=== PATIENT | male | born 1940 ===

== ENCOUNTER 2016-11-16 08:15 | Day surgery (SDC) | payer BC ==
[2016-11-14 17:28] LABS: HEMATOCRIT 39.4 % (40.0-51.0); HEMOGLOBIN 13.9 g/dL (13.6-17.8)
[2016-11-14 18:40] LABS: BUN (BLOOD UREA NITROGEN) 17 MG/DL (6-23); CALCIUM, SERUM 9.3 MG/DL (8.5-10.4); CHLORIDE, SERUM 103 MMOL/L (96-112); CO2 (CARBON DIOXIDE) 31 MMOL/L (24-34); CREATININE 1.09 MG/DL (0.70-1.30); GFR AFRICAN AMERICAN 77 ML/MIN (>=60); GFR NON AFRICAN AMERICAN 67 ML/MIN (>=60); GLUCOSE, SERUM 116 MG/DL (60-99); POTASSIUM, SERUM 3.9 MMOL/L (3.5-5.3); SODIUM, SERUM 141 MMOL/L (135-148)
--- NOTE | ~2016-11-16 | OP ---
Record Of Operation [facility] [address] [place]. 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 PROCEDURE: A wide local excision of a squamous cell carcinoma of the right ear with advancement flap closure. ANESTHESIA: MAC using 1% lidocaine with 1:100,000 epinephrine for local anesthesia. ESTIMATED BLOOD LOSS: 2 mL. INTRAOPERATIVE FLUIDS: 550 mL crystalloid. INTRAOPERATIVE FINDINGS: Slightly raised area on the posterior aspect of the right ear above the level of the earlobe with a centrally located stitch from the patient's previous biopsy. A 3 mm margin was diagrammed around the slightly raised tissue with a resultant excision of a lesion approximately 15 mm in diameter. This was closed with an advancement flap from the adjacent tissue on the posterior aspect of the right ear. OPERATIVE PROCEDURE: The patient was identified in the holding and transported to the operating room. In the operating room, the patient was placed on the operating room table in the supine position. Following administration of IV sedation with propofol, a proposed incision was diagrammed around the lesion in the aforementioned fashion. The incision was, initially, diagrammed in an elliptical fashion; however, with the amount of tissue that would require to be excised, I was concerned for excessive distortion of the posterior aspect of the ear. I did, therefore, diagram an adjacent advancement flap to facilitate closure. The incision for the advancement flap was placed in a natural skin crease on the posterior aspect of the ear. The area around the lesion on the ear and the advancement flap was then injected with 1% lidocaine with 1:100,000 epinephrine. The patient was prepped and draped in a sterile fashion. An incision was created around the lesion on the posterior aspect of the right ear in the aforementioned fashion. Dissection was carried down to the level of the subcutaneous tissues. The lesion was removed in a subdermal plane. Superiorly, the excision of tissue extended close to the auricular cartilage; however, no auricular cartilage was excised during the operative procedure. While awaiting the results of the frozen section on this tissue, the Burow's triangle was excised along the apex of the lesion, superiorly. The advancement flap was then elevated. The tissues surrounding the advancement flap were widely elevated. As the excision of tissue did extend near the helical rim, minimal undermining of tissue was performed anteriorly. With the tissues undermined, the advancement flap was placed into position and it was apparent that the defect could be closed with this advancement flap with minimal tension. The apex incision was closed with 2 simple interrupted 5-0 Prolene suture. The advancement flap was then placed into position and secured with 5-0 Prolene suture placed in an interrupted fashion along the lateral aspect of the closure. Along the medial aspect of the closure, the deep Record Of Operation [facility] [address] [facility] [place]. [address] NAME: GALLITO PEREZ JR : 44 STATUS : [facility]#: [id number] AGE: 76 ADM/REG DATE : 11/16/16 MR#: [id number] REPORT SERV DATE: 11/20/16 DICTATED BY: JONATHON BURRELL DATE: 11/20/16 REPORT STATUS : Draft TRANSCRIBED BY: MODL DATE: 11/20/16 tissues were closed with interrupted buried 3-0 chromic suture. A simple running 5-0 Prolene suture was placed in a running fashion for skin closure. At the end of the operative procedure, there was no significant bleeding. Triple antibiotic ointment was applied to the incision. The patient was subsequently awakened from anesthesia, extubated in the operating room, and transported to the recovery room in good condition. The patient tolerated the procedure well. There were no apparent complications. Specimens included squamous cell carcinoma of the right ear. TF/MODL Jonathon Burrell M.D. / [id number] CC: Lisseth Duran M.D.
[~2016-11-16 08:15] MED LIST: ASAB PO; BREO ELLIPTA INH; CALTRA600D PO; DIOVAN HCT PO; FISH-EPA1000 MG PO; FLONASE NAS; GLUCCHONDR PO; MULTIPLE VIT PO; NEXIUM40 PO; PROAIR HFA INH
== END 2016-11-16 16:31 | disposition home or self-care (01) ==
LOC: SDC 08:15
PROVIDERS: Otolaryngology
PROC: 0HX2XZZ Transfer Right Ear Skin, External Approach (ICD-10-PCS; principal; 2016-11-16 09:45)
DX: C44.222 Squamous cell carcinoma of skin of right ear and external auricular canal (principal); I10 Essential (primary) hypertension; E78.00 Pure hypercholesterolemia, unspecified; J45.909 Unspecified asthma, uncomplicated; K21.9 Gastro-esophageal reflux disease without esophagitis; Z79.82 Long term (current) use of aspirin; Z79.899 Other long term (current) drug therapy; Z79.52 Long term (current) use of systemic steroids; Z90.89 Acquired absence of other organs; Z98.890 Other specified postprocedural states; Z90.49 Acquired absence of other specified parts of digestive tract
CPT/HCPCS: 80048; 85014; 85018; 88305; 88331; 88332; 93005; A9270-GY; J0690; J2405; J3010